=== PATIENT | female | born 2000 | race Hispanic/Latino ===

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

== ENCOUNTER 2023-07-10 23:17 | Emergency (ER) | payer BC, OTHER ==
[2023-07-11 00:47] LABS: PT Prothrombin Time 10.6 SECONDS (9.5-12.5); Protime INR 0.96
[2023-07-11 00:49] LABS: Absolute Eosinophils 0.3 K/uL (0-0.5); Absolute Lymphocytes (CBC) 2.3 K/uL (0.7-4.9); Absolute Monocytes 1.2 K/uL (0.1-1.3); Absolute Neutrophil 6.8 K/uL (1.8-8.0); Basophils % 0.4 % (0-1.3); Eosinophils % 2.9 % (0-4.4); Hematocrit 40.8 % (36.0-45.0); Lymphocytes % 21.7 % (15.3-44.8); MCH 32.9 pg (27.0-35.0); MCHC 34.4 g/dL (32.0-36.0); MCV 95.8 fL (80-100); MPV 8.4 fL (7.6-11.3); Monocytes % 10.9 % (3.3-12.3); Neutrophils % 64.1 % (41.7-73.7); Platelets 316 thou/uL (152-406); RBC Red Blood Cell Count 4.26 M/uL (3.86-4.86); Red Cell Distribution Width 12.7 % (12.1-15.2)
[2023-07-11 01:06] LABS: ALT/SGPT 22 U/L (13-56); AST/SGOT 25 U/L (15-37); Albumin 3.9 g/dL (3.4-5.0); Albumin/Globulin Ratio 1.1 (1.1-1.8); Alkaline Phosphatase 48 U/L (45-117); Anion Gap 6.2 mEq/L (5.0-15.0); BUN Blood Urea Nitrogen 13 mg/dL (7-18); Bicarbonate 25 mEq/L (21-32); Bilirubin Total 0.3 mg/dL (0.2-1.0); Globulin 3.6 g/dL (2.3-3.5); Glomerular Filtration Rate 127 ml/min (=/>90); Glucose Level 120 mg/dL (74-106); NT PRO-BNP 11 pg/mL (<125); Potassium 3.2 mEq/L (3.5-5.1); Protein, Total 7.5 g/dL (6.4-8.2); Sodium Level 135 mEq/L (136-145); Troponin High Sensitivity 4.1 pg/mL (<58.9)
[2023-07-11 01:20] LABS: Bilirubin Direct < 0.2 mg/dL (0-0.2); Bilirubin Indirect, Calculated 0.1 mg/dL (0.2-0.8)
--- NOTE | 2023-07-11 02:24 | ER ---
Nurse's Notes [facility] Name: Stefano Martinez Age: 23 yrs Sex: Female : 2000 Arrival Date: 07/10/2023 Time: 23:17 Bed 2 Private MD: Diagnosis: Palpitations Presentation: 07/09 23:54 Chief complaint: Patient states: Pt states she was laying down when she had sudden tl4 onset of palpitations with non-radiating, non-reproducible left side chest pain. Pt also c/o SOB, diaphoresis. Pt has hx of myocarditis and heart failure. Coronavirus screen: At this time, the client does not indicate any symptoms associated with coronavirus-19. Ebola Screen: No symptoms or risks identified at this time. Initial Sepsis Screen: Does the patient meet any 2 criteria? No. Patient's initial sepsis screen is negative. Does the patient have a suspected source of infection? No. Patient's initial sepsis screen is negative. Risk Assessment: Do you want to hurt yourself or someone else? Patient reports no desire to harm self or others. Onset of symptoms was July 10, 2023 at 22:30. 23:54 Method Of Arrival: Ambulatory tl4 23:54 Acuity: ISAAC 3 tl4 Historical: - Allergies: 23:57 No Known Allergies; tl4 - Home Meds: 23:57 None [Active]; tl4 - PMHx: 23:57 Depression; Myocarditis; heart failure; tl4 - Immunization history:: Adult Immunizations unknown. - Infectious Disease History:: Denies. - Social history:: Smoking status: Reported history of juuling and/or vaping. Screenin/14 00:28 [facility] ED Fall Risk Assessment (Adult) History of falling in the last 3 months, rv including since admission No falls in past 3 months (0 pts) Score/Fall Risk Level 0 - 2 = Low Risk Oriented to surroundings, Maintained a safe environment, Educated pt \T\ family on fall prevention, incl call for assistance when getting out of bed, Assessed \T\ reinforced patient's understanding of fall precautions. Abuse screen: Denies threats or abuse. Denies injuries from another. Nutritional screening: No deficits noted. Tuberculosis screening: No symptoms or risk factors identified. Assessment: 00:28 General: Appears uncomfortable, Behavior is anxious. Pain: Complains of pain in chest. rv Neuro: Level of Consciousness is awake, alert, obeys commands, Oriented to person, place, time, situation. Cardiovascular: Capillary refill < 3 seconds Patient's skin is warm and dry. Cardiovascular: Rhythm is sinus arrythmia. Respiratory: Airway is patent Respiratory effort is even, unlabored, Breath sounds are clear bilaterally. GI: No signs and/or symptoms were reported involving the gastrointestinal system. Derm: Skin is intact. 02:32 Reassessment: Patient and/or family updated on plan of care and expected duration. Pain rv level reassessed. Patient is alert, oriented x 3, equal unlabored respirations, skin warm/dry/pink. Neuro: Level of Consciousness is awake, alert, obeys commands, Oriented to person, place, time, situation. Cardiovascular: Capillary refill < 3 seconds Patient's skin is warm and dry. Rhythm is regular. Vital Signs: 07/09 23:54 BP 150 / 106; Pulse 79; Resp 18; Temp 98.7(O); Pulse Ox 98% on R/A; Weight 42.18 kg; tl4 Height 5 ft. 3 in. ; Pain 8/10; 07/10 01:16 BP 126 / 55; Pulse 72; Resp 22; Pulse Ox 99% on R/A; rv 02:32 BP 105 / 63; Pulse 75; Resp 15; Temp 98; Pulse Ox 99% on R/A; rv 07/09 23:54 Body Mass Index 16.47 (42.18 kg, 160.02 cm) tl4 07/09 23:54 Pain Scale: Adult tl4 Moose Coma Score: 01:16 Eye Response: spontaneous(4). Motor Response: obeys commands(6). Verbal Response: rv oriented(5). Total: 15. ED Course: 07/09 23:21 Patient arrived in ED. ra3 23:23 Monika Zamora PA-C is [facility]. sb4 23:23 Mario Del Toro MD is Attending Physician. sb4 23:57 Triage completed. tl4 23:58 Arm band placed on right wrist. tl4 07/10 00:28 Russ Bui, JOY is Primary Nurse. rv 00:28 Patient has correct armband on for positive identification. Client placed on continuous rv cardiac and pulse oximetry monitoring. NIBP monitoring applied. trade show specialist on. 00:28 No provider procedures requiring assistance completed. Initial lab(s) drawn, by me, rv sent to lab. EKG done, by ED staff, reviewed by Monika Zamora PA-C. Inserted saline lock: 20 gauge in right forearm, using aseptic technique. Blood collected. 00:30 Basic Metabolic Panel Sent. rv 00:30 CBC with Diff Sent. rv 00:30 D-Dimer Sent. rv 00:30 LFT's Sent. rv 00:30 Magnesium Sent. rv 00:30 NT PRO-BNP Sent. rv 00:30 PT-INR Sent. rv 00:30 Troponin HS Sent. rv 00:31 TSH Sent. rv 01:01 XRAY Chest (1 view) In Process Unspecified. EDMS 01:52 Chest For PE Angio CT In Process Unspecified. EDMS 02:32 IV discontinued, intact, bleeding controlled, No redness/swelling at site. Pressure rv dressing applied. Administered Medications: No medications were administered Medication: 00:28 VIS not applicable for this client. rv Outcome: 02:24 Discharge ordered by MD. ojeda 02:32 Discharged to home ambulatory, rv 02:32 Condition: good 02:32 Discharge instructions given to patient, Instructed on discharge instructions, follow up and referral plans. Demonstrated understanding of instructions, follow-up care, 02:33 Patient left the ED. rv Signatures: Dispatcher [employer] EDMS Russ Bui, RN RN Monika Ray PA-C PA-C sb4 Logdahl, Toni RN RN tl4 Peggy Cervantes ra3
--- NOTE | 2023-07-11 02:24 | EDPHYS ---
Physician Documentation [facility] Name: Stefano Martinez Age: 23 yrs Sex: Female : 2000 Arrival Date: 07/10/2023 Time: 23:17 Bed 2 Private MD: ED Physician Mario Del Toro HPI: 07/10 00:24 This 23 yrs old Female presents to ER via Ambulatory with complaints of chest sb4 pain. 00:24 patient with sudden onset of left sided chest pain this evening after eating dinner. sb4 reports continuing palpitations and abnormal breathing. mom is concerned because in her childhood she had myocarditis that led to heart failure, which she has made a complete recovery from. Historical: - Allergies: 07/09 23:57 No Known Allergies; tl4 - Home Meds: 23:57 None [Active]; tl4 - PMHx: 23:57 Depression; Myocarditis; heart failure; tl4 - Immunization history:: Adult Immunizations unknown. - Infectious Disease History:: Denies. - Social history:: Smoking status: Reported history of juuling and/or vaping. ROS: 07/10 00:24 Constitutional: Negative for fever, chills, and weight loss, sb4 Cardiovascular: Positive for chest pain, palpitations, Respiratory: Positive for shortness of breath, Abdomen/GI: Positive for All other systems are negative, Exam: 00:24 Constitutional: This is a well developed, well nourished patient who is awake, alert, sb4 and in no acute distress. Head/Face: Normocephalic, atraumatic. Eyes: Extra-ocular motions intact. Periorbital areas with no swelling, redness, or edema. ENT: Mucous membranes moist. Cardiovascular: Regular rate and rhythm with a normal S1 and S2. Respiratory: Lungs have equal breath sounds bilaterally, clear to auscultation and percussion. No rales, rhonchi or wheezes noted. No increased work of breathing, no retractions or nasal flaring. Abdomen/GI: Soft, non-tender, no distension. Skin: Warm, dry with normal turgor. Normal color with no rashes, no lesions, and no evidence of cellulitis. MS/ Extremity: Pulses equal, no cyanosis. Neurovascular intact. Full, normal range of motion. Vital Signs: 07/09 23:54 BP 150 / 106; Pulse 79; Resp 18; Temp 98.7(O); Pulse Ox 98% on R/A; Weight 42.18 kg; tl4 Height 5 ft. 3 in. ; Pain 8/10; 07/10 01:16 BP 126 / 55; Pulse 72; Resp 22; Pulse Ox 99% on R/A; rv 02:32 BP 105 / 63; Pulse 75; Resp 15; Temp 98; Pulse Ox 99% on R/A; rv 07/09 23:54 Body Mass Index 16.47 (42.18 kg, 160.02 cm) tl4 07/09 23:54 Pain Scale: Adult tl4 Derrick Coma Score: 01:16 Eye Response: spontaneous(4). Motor Response: obeys commands(6). Verbal Response: rv oriented(5). Total: 15. MDM: 00:02 Patient medically screened. sb4 02:23 Data reviewed: vital signs, nurses notes, lab test result(s), EKG, radiologic studies, sb4 and as a result, I will discharge patient. Counseling: I had a detailed discussion with the patient and/or guardian regarding the historical points, exam findings, and any diagnostic results supporting the discharge/admit diagnosis, lab results, radiology results, to return to the emergency department if symptoms worsen or persist or if there are any questions or concerns that arise at home. 07/09 23:58 Order name: Basic Metabolic Panel; Complete Time: 01:22 4 07/09 23:58 Order name: CBC with Diff; Complete Time: 00:59 4 07/09 23:58 Order name: D-Dimer; Complete Time: 00:48 sb4 07/09 23:58 Order name: LFT's; Complete Time: 01:22 sb4 07/09 23:58 Order name: Magnesium; Complete Time: 01:22 sb4 07/09 23:58 Order name: NT PRO-BNP; Complete Time: 01:22 sb4 07/09 23:58 Order name: PT-INR; Complete Time: 00:48 sb4 07/09 23:58 Order name: Troponin HS; Complete Time: 01:22 sb4 07/10 00:07 Order name: TSH; Complete Time: 01:11 sb4 07/09 23:58 Order name: XRAY Chest (1 view) sb4 07/10 00:49 Order name: Chest For PE Angio CT sb4 07/09 23:58 Order name: EKG; Complete Time: 23:59 sb4 07/09 23:58 Order name: Cardiac monitoring; Complete Time: 00:30 sb4 07/09 23:58 Order name: EKG - Nurse/Tech; Complete Time: 00:17 sb4 07/09 23:58 Order name: IV Saline Lock; Complete Time: 00:30 sb4 07/09 23:58 Order name: Labs collected and sent; Complete Time: 00:30 sb4 07/09 23:58 Order name: O2 Per Protocol; Complete Time: 00:30 sb4 07/09 23:58 Order name: O2 Sat Monitoring; Complete Time: 00:30 sb4 EC:24 Rate is 86 beats/min. Rhythm is irregular, Sinus arrythmia with Occasional PVCs. AL sb4 interval is normal at 114 msec. QRS interval is normal at 108 msec. QT interval is normal at 368 msec. No Q waves. T waves are Normal. No ST changes noted. Clinical impression: Sinus arrythmia and No evidence of ischemia. Interpreted by me. Reviewed by me. Administered Medications: No medications were administered Disposition: 03:36 Co-signature as Attending Physician, Mario Del Toro MD I agree with the assessment sp4 and plan of care. I reviewed the patient's care provided by the Advanced Practice Provider and agree with the diagnosis and treatment plan. Disposition Summary: 07/11/23 02:24 Discharge Ordered Notes: Location: Home sb4 Problem: new sb4 Symptoms: have improved sb4 Condition: Stable sb4 Diagnosis - Palpitations sb4 Followup: sb4 - With: Emergency Department - When: As needed - Reason: Trouble breathing, Worsening of condition Discharge Instructions: - Discharge Summary Sheet sb4 - Palpitations sb4 Forms: - Patient Portal Instructions sb4 - Leadership Thank You Letter sb4 Signatures: Dispatcher [employer] Monika Pollard PA-C PA-C sb4 Potepalov, Sergey, MD MD sp4 LogdaRosalino dykes RN RN tl4 Corrections: (The following items were deleted from the chart) 07/09 23:59 23:59 BASIC METABOLIC PANEL+C.LAB.BRZ ordered. EDCO EDCO 23:59 23:59 CBC+H.LAB.BRZ ordered. EDMS EDMS 23:59 23:59 D-DIMER+COAG.LAB.BRZ ordered. EDMS EDMS 23:59 23:59 HEPATIC FUNCTION+C.LAB.BRZ ordered. EDMS EDMS 23:59 23:59 MAGNESIUM+C.LAB.BRZ ordered. EDMS EDMS 23:59 23:59 PROBNP+C.LAB.BRZ ordered. EDMS EDMS 23:59 23:59 PROTIME (+INR)+COAG.LAB.BRZ ordered. EDMS EDMS 23:59 23:59 Troponin High Sensitivity+C.LAB.BRZ ordered. EDMS EDMS 07/10 00:07 00:07 THYROID STIMULAT HORMONE+C.LAB.BRZ ordered. EDMS EDMS 00:49 00:49 Chest For PE Angio+CT.RAD.BRZ ordered. EDMS EDMS
[2023-07-11 02:58] VITALS: BP 105/63; TEMP 98; O2SAT 99
--- NOTE | 2023-07-11 10:59 | EKG ---
Test Date: 2023-07-11 Test Time: 00:11:26 Retail Analyst: RV MEASUREMENT RESULTS: Intervals: Rate: 83 OR: 144 QRSD: 108 QT: 368 QTc: 432 [place]: P: 77 OR: 144 QRS: 132 T: 78 INTERPRETIVE STATEMENTS: Sinus rhythm with sinus arrhythmia with occasional premature ventricular complexes Otherwise normal ECG Compared to ECG 12/13/2017 22:07:07 Ventricular premature complex(es) now present Right-axis deviation no longer present Electronically Signed On 07-11-23 10:58:29 CDT by Adrian Springer
--- NOTE | 2023-07-11 13:47 | RAD REPORT ---
EXAM DESCRIPTION: CT - Chest For Pe Angio - 07/11/2023 6:48 am CLINICAL HISTORY: The patient is 23 years old and is Female; CHEST PAIN TECHNIQUE: Axial computed tomographic angiography images of the chest with intravenous contrast. S agittal and coronal reformatted images were created and reviewed. This CT exam was performed using one or more of the following dose reduction techniques: automated exposure control, adjustment of t he mA and/or kV according to patient size, and/or use of iterative reconstruction technique. MIP reconstructed images were created and reviewed. COMPARISON: CTA of the chest December 13, 2017 FINDINGS: TRACHEA: The tracheobronchial tree is patent. PULMONARY ARTERIES: The stomach is distended with food contents. There are no obvious filling def ects identified within the pulmonary arteries to suggest pulmonary embolism. AORTA: No acute findings. No thoracic aortic aneurysm. LUNGS: A few small groundglass nodular densities within the right lower lobe are present, the lar gest of which measures 0.9 cm. The lungs are otherwise well-inflated and clear. There is no lobar con solidation. PLEURAL SPACE: Unremarkable. No significant effusion. No pneumothorax. HEART: Unremarkable. No cardiomegaly. No significant pericardial effusion. No evidence of R V dysfunction. BONES/JOINTS: No acute fracture. No dislocation. SOFT TISSUES: Unremarkable. LYMPH NODES: Unremarkable. No enlarged lymph nodes. IMPRESSION: 1. No evidence of pulmonary embolism. 2. Nonspecific groundglass nodular densities within the right lower lobe. Findings may be secondary to a mild infectious versus inflammatory process. 3. No lobar consolidation. No effusion or mass. Electronically signed by: Lila Juarez MD 07/11/2023 02:18 AM CDT Due to temporary technical issues with the PACS/Fluency reporting system, reports are being signed by the in house radiologist without review as a courtesy to ensure prompt reporting. The interpreting r adiologist is fully responsible for the content of the report.
--- NOTE | 2023-07-11 13:48 | RAD REPORT ---
EXAM DESCRIPTION: RAD - Chest Single View - 07/11/2023 12:59 am CLINICAL HISTORY: CHEST PAIN COMPARISON: None FINDINGS: Cardiac silhouette is within normal limits. EKG leads project over the chest. There is no focal parenchymal or pleural disease. There is no acute osseous process visualized. IMPRESSION: No evidence of acute cardiopulmonary disease. Electronically signed by: Dario Augustine MD 07/11/2023 01:30 AM CDT Due to temporary technical issues with the PACS/Fluency reporting system, reports are being signed by the in house radiologist without review as a courtesy to ensure prompt reporting. The interpreting r adiologist is fully responsible for the content of the report.
== END 2023-07-11 02:33 | disposition home or self-care (01) ==
LOC: ER 23:17
DX: R00.2 Palpitations (principal); R07.9 Chest pain, unspecified
CPT/HCPCS: 93005; 85025; 80048; 36415; 83735; 85610; 85379; 80076; 84443; 84484; 83880; 71275; 71045; 99284; Q9967